=== PATIENT | female | born 1985 | race African-American/Black ===

== ENCOUNTER 2020-11-27 20:06 | Emergency (ER) | payer BC, SELFPAY ==
[2020-11-27 20:51] VITALS: BP 131/86; PULSE 78; RESP 16; TEMP 36.6; O2SAT 99; BMI 34.3
--- NOTE | 2020-11-27 21:41 | ECG_ITS ---
Test Reason : CHEST PAIN Blood Pressure : / mmHG Vent. Rate : 064 BPM Atrial Rate : 064 BPM P-R Int : 160 ms QRS Dur : 082 ms QT Int : 418 ms P-R-T Axes : 029 056 040 degrees QTc Int : 431 ms Sinus rhythm with Premature atrial complexes Otherwise normal ECG No previous ECGs available Referred By: Jese Lewis Electronically Signed By:AGNIESZKA HCURCHILL MD
[2020-11-27 22:07] LABS: MANUAL DIFF FLAG NO
[2020-11-27 22:09] LABS: Basophils Percent Auto 0.6 % (0-2); Eosinophils Absolute Auto 0.1 X10*3/uL (0.0-0.4); Eosinophils Percent Auto 2.3 % (0-4); Hematocrit 36.5 % (37-47); Imm Gran Abs Auto 0.01 X10*3/uL (0.00-0.03); Imm Gran Pct Auto 0.2 % (0.0-0.4); Lymphocytes Percent Auto 42.1 % (20-40); Mean Corpuscular HGB Conc 32.9 g/dl (31.0-35.0); Mean Corpuscular Hemoglobin 29.6 pg (27.0-33.0); Mean Corpuscular Volume 90.1 fL (80-98); Mean Platelet Volume 9.3 fL (9.4-12.3); Monocytes Absolute Auto 0.3 X10*3/uL (0.1-1.2); Monocytes Percent Auto 7.2 % (2-11); Neutrophils Absolute Auto 2.3 X10*3/uL (2.0-8.3); Neutrophils Percent Auto 47.6 % (45-73); Platelet Count 223 X10*3/uL (160-400); Red Blood Count 4.05 X10*6/uL (4.20-5.50); Red Cell Distribution Width 13.2 % (11.0-16.0); White Blood Count 4.8 X10*3/uL (4.8-10.8)
[2020-11-27 22:20] LABS: D Dimer < 200 NG/ML
[2020-11-27 22:39] LABS: Anion Gap 15 (12-20); Blood Urea Nitrogen 7 mg/dL (9-16); Calcium 9.5 mg/dL (8.4-10.2); Carbon Dioxide 24 mmol/L (22-29); Chloride 105 mmol/L (96-108); Creatinine Clr Calc Pharmacy 129.2; Estimated Glomerular Filt Rate > 60; Glucose Random 90 mg/dL (60-115); Potassium 3.7 mmol/L (3.3-5.1); Sodium 140 mmol/L (135-145)
--- NOTE | 2020-11-27 22:42 | ED_ITS ---
HPI - Chest Pain General Chief Complaint: Extremity Injury, Upper Stated Complaint: pain in left shoulder for a few hours Time Seen by Provider: 11/27/20 21:35 Source: patient Mode of arrival: ambulatory Limitations: no limitations History of Present Illness HPI narrative: patient with no known coronary artery disease noticed left-sided upper chest pain and left arm pain since 16:00. No shortness of breath no cough patient feel pain deep inside at this time left shoulder pain is gone on the just having dull pain in the left chest no relation with breathing no relation with movements no diaphoresis no nausea no vomiting patient never had similar pain in the past. Patient denies any cough no fever or chills no recent trauma Related Data Allergies Allergy/AdvReac Type Severity Reaction Status Date / Time No Known Allergies Allergy Verified 11/27/20 20:51 Review of Systems Review of Systems: Yes all other systems are reviewed and are negative [facility] Past Medical History Medical History No known health problems Social History Social History Advance Directives: No Advance Directives Information Provided: No Physical Exam Vital Signs: Vital Signs: Last Vital Signs Temp 97.8 F 11/27/20 20:51 Pulse 78 11/27/20 20:51 Resp 16 11/27/20 20:51 BP 131/86 11/27/20 20:51 Pulse Ox 99 11/27/20 20:51 Body Mass Index 34.3 Appearance: Alert. Oriented X3. No acute distress. Eyes: PERRLA, No Nystagmus ENT: Pharynx normal. Oral Mucosa moist Neck: Normal inspection. Neck supple. CVS: Normal heart rate and rhythm. Pulses normal. Respiratory: No respiratory distress. Equal air entry bilateral, no wheezing/rales/rhonchi Abdomen: Soft and nontender. Bowel sounds are present, no mass palpable, no CVA tenderness Skin: Skin warm and dry. Normal skin color. Normal skin turgor. Extremities: No lower extremity edema. No calf tenderness good range of movement of left shoulder , rotator cuff intact and nontender Neuro: Oriented X 3. No motor deficit. No sensory deficit. MDM - Chest Pain Lab Data Attestation: I reviewed the patient's lab results. Result diagrams: 11/27/20 22:03 11/27/20 22:03 Labs: Lab Results 11/27/20 11/27/20 11/27/20 Range/Units 22:03 22:03 22:03 WBC 4.8 (4.8-10.8) X10*3/uL RBC 4.05 L (4.20-5.50) X10*6/uL Hgb 12.0 (12.0-16.0) g/dl Hct 36.5 L (37-47) % MCV 90.1 (80-98) fL MCH 29.6 (27.0-33.0) pg MCHC 32.9 (31.0-35.0) g/dl RDW 13.2 (11.0-16.0) % Plt Count 223 (160-400) X10*3/uL MPV 9.3 L (9.4-12.3) fL Immature Gran % (Auto) 0.2 (0.0-0.4) % Neut % (Auto) 47.6 (45-73) % Lymph % (Auto) 42.1 H (20-40) % [place] % (Auto) 7.2 (2-11) % Eos % (Auto) 2.3 (0-4) % Baso % (Auto) 0.6 (0-2) % Lymph # (Auto) 2.0 (1.2-4.9) X10*3/uL [place] # (Auto) 0.3 (0.1-1.2) X10*3/uL Eos # (Auto) 0.1 (0.0-0.4) X10*3/uL Baso # (Auto) 0.0 (0.0-0.2) X10*3/uL Abs Immat Gran (auto) 0.01 (0.00-0.03) X10*3/uL Absolute Neuts (auto) 2.3 (2.0-8.3) X10*3/uL Absolute Nucleated RBC 0.000 (0.0-0.012) X10*3/uL Nucleated RBC % (auto) 0.0 (0.0-0.2) /100WBC D-Dimer < 200 NG/ML Sodium 140 (135-145) mmol/L Potassium 3.7 (3.3-5.1) mmol/L Chloride 105 (96-108) mmol/L Carbon Dioxide 24 (22-29) mmol/L Anion Gap 15 (12-20) BUN 7 L (9-16) mg/dL Creatinine 0.65 (0.5-1.4) mg/dL Estim Creat Clear Calc 129.2 Estimated GFR > 60 Random Glucose 90 (60-115) mg/dL Calcium 9.5 (8.4-10.2) mg/dL Troponin I High Sens (<3.5-17.0) ng/L 11/27/20 Range/Units 22:03 WBC (4.8-10.8) X10*3/uL RBC (4.20-5.50) X10*6/uL Hgb (12.0-16.0) g/dl Hct (37-47) % MCV (80-98) fL MCH (27.0-33.0) pg MCHC (31.0-35.0) g/dl RDW (11.0-16.0) % Plt Count (160-400) X10*3/uL MPV (9.4-12.3) fL Immature Gran % (Auto) (0.0-0.4) % Neut % (Auto) (45-73) % Lymph % (Auto) (20-40) % [place] % (Auto) (2-11) % Eos % (Auto) (0-4) % Baso % (Auto) (0-2) % Lymph # (Auto) (1.2-4.9) X10*3/uL [place] # (Auto) (0.1-1.2) X10*3/uL Eos # (Auto) (0.0-0.4) X10*3/uL Baso # (Auto) (0.0-0.2) X10*3/uL Abs Immat Gran (auto) (0.00-0.03) X10*3/uL Absolute Neuts (auto) (2.0-8.3) X10*3/uL Absolute Nucleated RBC (0.0-0.012) X10*3/uL Nucleated RBC % (auto) (0.0-0.2) /100WBC D-Dimer NG/ML Sodium (135-145) mmol/L Potassium (3.3-5.1) mmol/L Chloride (96-108) mmol/L Carbon Dioxide (22-29) mmol/L Anion Gap (12-20) BUN (9-16) mg/dL Creatinine (0.5-1.4) mg/dL Estim Creat Clear Calc Estimated GFR Random Glucose (60-115) mg/dL Calcium (8.4-10.2) mg/dL Troponin I High Sens < 3.5 (<3.5-17.0) ng/L ECG Data ECG #1: Attestation: I personally reviewed and interpreted this ECG as follows: Interpretation: nodes rhythm with PACs normal interval axis no acute ischemic changes impression normal EKG Scores Heart Score History: -0- slightly suspicious ECG: -0- normal Age: -0- < or = 45 Risk factory: -0- no risk factors known Troponin: -0- < or = normal limit Score: 0 Risk: 1.7% Discharge Plan Discharge Clinical Impression: Chest pain Qualifiers: Chest pain type: unspecified Qualified Code(s): R07.9 - Chest pain, unspecified Patient Disposition: Home, Self-Care Instructions: Chest Pain (ED) Additional Instructions: follow up with PCP for further evaluation at this time your chest pain is does not seems to be coming from the heart likely musculoskeletal Interventions: ED Discharge Assessment Last Done: 11/27/20 22:52 Discharge Date/Time: 11/27/20 22:53
[2020-11-27 22:47] LABS: Troponin-I High Sensitivity < 3.5 ng/L (<3.5-17.0)
== END 2020-11-27 22:53 | disposition home or self-care (01) ==
PROVIDERS: Emergency Provider Internal Medicine
DX: R07.9 Chest pain, unspecified (principal)
CPT/HCPCS: 36415; 80048; 84484; 85025; 85379; 93005; 99283

== ENCOUNTER 2025-02-24 10:58 | Outpatient (REF) | payer BC, SELFPAY ==
[2025-02-24 13:47] LABS: Hematocrit 37.1 % (37.0-47.0); Hemoglobin 12.2 g/dl (12.0-16.0); Mean Corpuscular HGB Conc 32.9 g/dl (31.0-35.0); Mean Corpuscular Hemoglobin 29.5 pg (27.0-33.0); Mean Corpuscular Volume 89.8 fL (80.0-98.0); NRBC Abs Auto 0.000 X10*3/uL (0.0-0.012); NRBC Pct Auto 0.0 /100WBC (0.0-0.2); Platelet Count 234 X10*3/uL (160-400); Red Blood Count 4.13 X10*6/uL (4.20-5.50); White Blood Count 3.2 X10*3/uL (4.8-10.8)
[2025-02-24 14:48] LABS: Alanine Aminotransferase 22 U/L (0-31); Albumin Level 4.5 g/dL (3.5-5.0); Alkaline Phosphatase 41 U/L (39-117); Anion Gap 12 (12-20); Aspartate Amino Transferase 20 U/L (5-31); Blood Urea Nitrogen 10 mg/dL (9-16); Calcium 9.0 mg/dL (8.4-10.2); Carbon Dioxide 27 mmol/L (22-29); Chloride 109 mmol/L (96-108); Cholesterol 205 mg/dL (<200); Estimated Glomerular Filt Rate > 60; HDL Cholesterol 54 mg/dL (>40); Potassium 3.9 mmol/L (3.3-5.1); Sodium 144 mmol/L (135-145); Total Protein 7.5 g/dL (6.5-8.0); Triglycerides 40 mg/dL (<150)
[2025-02-24 14:49] LABS: Thyroid Stimulating Hormone 2.02 uIU/mL (0.32-4.0)
[2025-02-24 16:17] LABS: Appearance Urine Clear; Glucose Urine UA Negative (Negative); PH 7.5 (5.0-9.0); Specific Gravity - Urine <= 1.005 (1.005-1.025)
== END 2025-02-24 10:59 | disposition home or self-care (01) ==
LOC: HO.HMGCLDS 10:58
PROVIDERS: PCP Internal Medicine; Visit Provider Internal Medicine
DX: Z23 Encounter for immunization (principal); Z28.82 Immunization not carried out because of caregiver refusal; R21 Rash and other nonspecific skin eruption; L30.9 Dermatitis, unspecified
CPT/HCPCS: 36415; 80048; 80061; 80076; 81003; 84443; 85027; 85652; 90471; 96127

== ENCOUNTER 2025-02-24 10:58 | Outpatient (AMB) | payer BC, SELFPAY ==
--- NOTE | 2025-02-24 11:07 | A.OFFPC_ITS ---
Vital Signs 02/24/25 11:32 Height 5 ft 4.57 in Weight 189 lb BMI 31.9 BP 107/56 L Blood Pressure Location Rt brachial Position Sitting Respiration 14 Pulse 60 Pulse Source Pulse Oximeter Temp 97.8 F Temp Source Temporal Artery Scan Pulse Oximetry (%) 99 Oxygen Delivery Method Room Air Intake Visit Reasons: Establish Care Cocoa Bean Cleaner Required: No Accompanied by: Self / Same As Patient Allergies No Known Allergies Allergy (Verified 02/24/25 13:36) Tobacco use date assessed: 02/24/25 Dental Screening Dental Screen Date: 02/24/25 Did you have a dental visit in the last 12 months?: Yes Did you have a dental problem in the last 6 months where you did not have access to dental care?: No Was dental information given to patient?: Patient has dentist HPI Establish Care HPI Details 39-year-old female presents to the [facility] to establish her care. Patient has no active chronic medical conditions. In the past few months, she has been troubled by constant itching in the ear canals bilaterally. She has noticed flaking on her pillow case. Has been treated with antibiotics and antifungal in the past. Reports no symptoms of blocked ears or loss of hearing. [facility] Medical History No known health problems Family History Mother Cancer Father BP (high blood pressure) Social History Housing: House Alcohol intake: current Alcohol intake frequency: does not drink Patient Tobacco Use Status: Former Tobacco user service: No Current occupational status: employed Cognitive needs: No Hearing needs: No Vision needs: No Questionnaire PHQ-9 Over the last 2 weeks, how often have you been bothered by any of the following problems? 1. Little interest or pleasure in doing things: not at all 2. Feeling down, depressed, or hopeless: not at all 3. Trouble falling or staying asleep, or sleeping too much: not at all 4. Feeling tired or having little energy: not at all 5. Poor appetite or overeating: not at all 6. Feeling bad about yourself - or that you are a failure or have let yourself or your family down: not at all 7. Trouble concentrating on things, such as reading the newspaper or watching television: not at all 8. Moving or speaking so slowly that other people could have noticed. Or the opposite - being so fidgety or restless that you have been moving around a lot more than usual: not at all 9. Thoughts that you would be better off or of hurting yourself in some way: not at all Total score: 0 Source: Developed by Drs. Paulino Murray, Meri Miramontes, Malcom Tripp and colleagues, with an educational niesha from [employer]. Thrive Questionnaire Date Thrive assessed: 02/24/25 I am a: Patient What is your living situation today?: I have a steady place to live Within the past 12 months, did the food you bought not last and you didn't have the money to get more?: Never true Within the past 12 months, did you worry whether your food would run out before you got money to buy more?: Never true Do you have trouble paying for medicines?: No Do you have trouble getting transportation to medical appointments?: No Do you have trouble paying your heating and electricity bill?: No Do you have trouble taking care of your child, family member or friend?: No Do you have trouble with day-to-day activities such as bathing, preparing meals, shopping, managing finances, etc.?: No Are you currently unemployed and looking for a job?: No Are you interested in more education?: No Please select the resources that you would like help with: None THRIVE Score: 0 AUDIT C Alcohol Use Questionnaire (AUDIT-C) 1. How often do you have a drink containing alcohol?: Never 3. How often do you have six or more drinks on one occasion?: Never Total Score: 0 HAILY-7 AMB Questionnaire HAILY-7 Date HALIY - 7 assessed: 02/24/25 Feeling nervous, anxious, or on edge: 0 = Not at all Not being able to stop or control worryin = Not at all Worrying too much about different things: 0 = Not at all Trouble relaxin = Not at all Being so restless that it is hard to sit still: 0 = Not at all Becoming easily annoyed or irritable: 0 = Not at all Feeling afraid as if something awful might happen: 0 = Not at all Total HAILY-7 score (0-4 normal; 5-9 mild; 10-14 moderate; 15-21 severe): 0 Source: Developed by Drs. Paulino Murray, Meri Miramontes, Malcom Tripp and colleagues, with an educational niesha from [employer]. Physical exam (Primary Care) Vital Signs: Last Vital Signs Temp 97.8 F 02/24/25 11:32 Pulse 60 02/24/25 11:32 Resp 14 02/24/25 11:32 BP 107/56 L 02/24/25 11:32 Pulse Ox 99 02/24/25 11:32 Oxygen Delivery Method Room Air 02/24/25 11:32 BMI result Body Mass Index 31.9 Tobacco/Smoking Status: Tobacco use Status Tobacco use date assessed 02/24/25 02/24/25 11:09 Patient Tobacco Use Status Former Tobacco user 02/24/25 11:37 PHQ-9: PHQ-9 Score PHQ-9: Total score 0 02/24/25 11:37 Thrive Assessment: Date of Thrive Assessment Date Thrive assessed 02/24/25 02/24/25 11:09 Const General: cooperative and healthy appearing Nutritional Appearance: well nourished Orientation/consciousness: patient oriented x3 Limitations: no limitations HENMT Other: Bilateral ear: External ear canal: Right and left : Flaking skin with minimal erythema. Head: Yes normal to inspection Eyes General: appearance normal, both eyes and all related structures Neck Neck: Yes normal visual inspection Chest Chest palpation & inspection: normal palpation of entire chest wall Resp Effort & Inspection: normal respiratory effort Neuro General: patient oriented x3 Office Procedures Flu Questionnaire Does the patient have a severe egg allergy?: No Does the patient have severe life threatening allergies?: No Does the patient have a fever or illness today?: No Has the patient ever had Guillain-Silver Plume Syndrome?: No Has the patient ever had any past reaction to a flu shot?: No Immunizations Fluarix [id number] (PF) 45 mcg (15 mcg x 3)/0.5 mL IM syringe Performing Provider: Jameel Longoria MD [facility] [place] [facility] Documented (not given) by: GAGAN Urena on 02/24/25 11:38 Reason Not Given: Patient Refused Coding Level of Care Code New Pt Level 4 (33551) Complex EM visit Add On G2211 Diagnoses Eczema L30.9 Assessment & Plan Assessment & Plan (1) Eczema: Code(s): L30.9 - Dermatitis, unspecified Plan: Trial of hydrocortisone cream for 2 weeks. If no response, a dermatology appointment will be requested. Blood work has been ordered. Orders: Orders Complete Blood Count no Diff Today R21 - Rash and other nonspecific skin eruption Liver Panel Today R21 - Rash and other nonspecific skin eruption Influenza [id number] Immunization Today Z23 - Encounter for immunization Basic Metabolic Panel Today R21 - Rash and other nonspecific skin eruption Lipid Panel Today R21 - Rash and other nonspecific skin eruption Thyroid Stimulating Hormone Today R21 - Rash and other nonspecific skin erup tion UA and rflx microscopic Today R21 - Rash and other nonspecific skin eruption Erythrocyte Sedimentation Rate Today R21 - Rash and other nonspecific skin eruption Medications: New hydrocortisone 2.5% 1 appl topical BID PRN 20 grams 0RF skin irritation
[2025-02-24 11:32] VITALS: BP 107/56; PULSE 60; RESP 14; TEMP 36.6; O2SAT 99; BMI 31.9
--- OUTSIDE RECORDS SUMMARY | 2025-02-24 12:28 | XMS_ITS ---
Author Name [facility] Organization Unknown Problems Problem Status Onset Date Problem Type Date of Resoluti on Source Otalgia, bilateral active EncounterDiagnosisAct [facility]
--- OUTSIDE RECORDS SUMMARY | 2025-02-24 12:28 | XMS_ITS | Clinical Summary ---
Author Organization [facility] Address [address] [place] [address] Care Team Providers Care Encoding Clerk Name Role Phone Unavailable Primary Care Provider Unavailabl e Encounters Date Type Department Care Team Description 12/10/2024 Transcribe Orders [facility] PRIMARY CARE SCAN Nanette Crooks NP Otalgia, bilateral (Primary Dx) from Last 3 Months Social History Tobacco Use Types Packs/Day Years Used Date Smoking Tobacco: Never Assessed Comments Unknown Sex and Gender Information Value Date Recorded Sex Assigned at Not on file Legal Sex Female 10:50 AM EDT Gender Identity Not on file Sexual Orientation Not on file Plan of Treatment Health Maintenance Due Date Last Done Comments Hepatitis C Virus Screening 1983 HIV Screening 08/06/1996 DTaP/Tdap/Td Vaccines (1 - Tdap) 08/06/2002 Hepatitis B Vaccines (1 of 3 - 19+ 3-dose series) 08/06/2002 COVID-19 Vaccine (2023-2 5 season) 2025 HPV Vaccines (No Doses Required) Completed Pneumococcal Vaccine: Pediat sabra (0-5 Years) and At-Risk Patients (6 to 49 Years) Aged Out No longer eligible b ased on patient's age to complete this topic
== END 2025-02-24 12:09 | disposition home or self-care (01) ==
LOC: HO.HMCSH 10:58
PROVIDERS: Visit Provider Internal Medicine
DX: L30.9 Dermatitis, unspecified (principal); Z23 Encounter for immunization

== ENCOUNTER 2025-04-01 15:46 | Outpatient (AMB) | payer BC, SELFPAY ==
--- NOTE | 2025-04-01 15:47 | A.OFFPC_ITS ---
Vital Signs 04/01/25 15:50 Height 5 ft 4.5 in Weight 194 lb BMI 32.8 BP 106/60 Blood Pressure Location Rt brachial Pulse 84 Pulse Source Pulse Oximeter Temp 97.3 F Pulse Oximetry (%) 99 Intake Visit Reasons: Follow up on labs Intake Note: no other issues Allergies No Known Allergies Allergy (Verified 04/01/25 15:48) Tobacco use date assessed: 02/24/25 Dental Screening Dental Screen Date: 02/24/25 [facility] Medical History No known health problems Family History Mother Cancer Father BP (high blood pressure) Social History Housing: House Alcohol intake: current Alcohol intake frequency: does not drink Patient Tobacco Use Status: Former Tobacco user service: No Current occupational status: employed Cognitive needs: No Hearing needs: No Vision needs: No Questionnaire PHQ-9 Over the last 2 weeks, how often have you been bothered by any of the following problems? 1. Little interest or pleasure in doing things: not at all 2. Feeling down, depressed, or hopeless: not at all 3. Trouble falling or staying asleep, or sleeping too much: not at all 4. Feeling tired or having little energy: not at all 5. Poor appetite or overeating: not at all 6. Feeling bad about yourself - or that you are a failure or have let yourself or your family down: not at all 7. Trouble concentrating on things, such as reading the newspaper or watching television: not at all 8. Moving or speaking so slowly that other people could have noticed. Or the opposite - being so fidgety or restless that you have been moving around a lot more than usual: not at all 9. Thoughts that you would be better off or of hurting yourself in some way: not at all Total score: 0 Source: Developed by Drs. Paulino Murray, Meri Miramontes, Malcom Tripp and colleagues, with an educational niesha from [employer] Thrive Questionnaire Date Thrive assessed: 02/24/25 I am a: Patient What is your living situation today?: I have a steady place to live Within the past 12 months, did the food you bought not last and you didn't have the money to get more?: Never true Within the past 12 months, did you worry whether your food would run out before you got money to buy more?: Never true Do you have trouble paying for medicines?: No Do you have trouble getting transportation to medical appointments?: No Do you have trouble paying your heating and electricity bill?: No Do you have trouble taking care of your child, family member or friend?: No Do you have trouble with day-to-day activities such as bathing, preparing meals, shopping, managing finances, etc.?: No Are you currently unemployed and looking for a job?: No Are you interested in more education?: No Please select the resources that you would like help with: None THRIVE Score: 0 AUDIT C Alcohol Use Questionnaire (AUDIT-C) 1. How often do you have a drink containing alcohol?: Never 3. How often do you have six or more drinks on one occasion?: Never Total Score: 0 HAILY-7 AMB Questionnaire HAILY-7 Date HAILY - 7 assessed: 02/24/25 Feeling nervous, anxious, or on edge: 0 = Not at all Not being able to stop or control worryin = Not at all Worrying too much about different things: 0 = Not at all Trouble relaxin = Not at all Being so restless that it is hard to sit still: 0 = Not at all Becoming easily annoyed or irritable: 0 = Not at all Feeling afraid as if something awful might happen: 0 = Not at all Total HAILY-7 score (0-4 normal; 5-9 mild; 10-14 moderate; 15-21 severe): 0 Source: Developed by Drs. Paulino Murray, Meri Miramontes, Malcom Tripp and colleagues, with an educational niesha from [employer] Physical exam (Primary Care) Vital Signs: Last Vital Signs Temp 97.3 F 04/01/25 15:50 Pulse 84 04/01/25 15:50 BP 106/60 04/01/25 15:50 Pulse Ox 99 04/01/25 15:50 BMI result Body Mass Index 32.8 Tobacco/Smoking Status: Tobacco use Status Tobacco use date assessed 02/24/25 04/01/25 15:52 Patient Tobacco Use Status Former Tobacco user 04/01/25 15:52 PHQ-9: PHQ-9 Score PHQ-9: Total score 0 04/01/25 15:52 Thrive Assessment: Date of Thrive Assessment Date Thrive assessed 02/24/25 04/01/25 15:52 Coding Level of Care Code Est Pt Level 4 (52806) Complex EM visit Add On G2211 Diagnoses Hyperlipidemia E78.5 Assessment & Plan Assessment & Plan (1) Hyperlipidemia: Code(s): E78.5 - Hyperlipidemia, unspecified Plan History of Present Illness - The patient is a 39-year-old female presenting for a review of lab results. - She expressed concern regarding her body's water regulation, noting her blood sodium was high-normal at 144 and chloride was 109, while her urine was dilute. - The patient also has concerns about her blood counts, reporting a white blood cell count of 3.2 which has been low for over two years, and a red blood cell count of 4.13, which she feels has dropped within the last year. - She has a history of anemia but is not currently anemic. - Her hemoglobin was 12 and RBC count was 4.25 in November 2020. - Regarding her metabolic markers, the patient noted her LDL cholesterol is high at 143 and total cholesterol is 205, despite a healthy diet. - Her triglycerides are low and HDL is excellent at 55.4. - She has no history of diabetes. - Finally, the patient reports chronic symptoms of ear itching and scaly skin, which recurred shortly after a two-week course of hydrocortisone cream. - She reports her symptoms were controlled while using the medication. Social History - Tobacco: Denies smoking. - Diet: Reports a healthy diet. Review of Systems - Dermatologic: Reports recurrent ear itching with scaly skin. - Ears: Reports being very sensitive. Physical Exam General: Cooperative and healthy appearing Nutritional Appearance: Well nourished Orientation/consciousness: Patient oriented x3 Limitations: No limitations Head: Normal to inspection General: Appearance normal, both eyes and all related structures Neck: Normal visual inspection Chest: Normal palpation of entire chest wall Respiratory: Normal respiratory effort Neurology: Patient oriented x3 Results - Complete Blood Count: White blood cells 3.2 (low), Red blood cells 4.13, Hemoglobin 12 (stable since 11/2020). - Comprehensive Metabolic Panel: Sodium 144, Chloride 109. BUN and creatinine are normal. - Lipid Panel: Total cholesterol 205, LDL 143, HDL 55.4, triglycerides low. Plan - Electrolyte abnormalities: The patient was reassured that her kidney function is normal and her body's water regulation system is functioning properly. - Leukopenia: The patient was informed she has leukopenia but was reassured that the level is not dangerously low and can be influenced by genetics. - We will continue to monitor her blood counts. - Offered a referral to a drain cleaner if she remains concerned and instructed her to request it via the patient portal if desired. - Hyperlipidemia: Discussed the patient's elevated LDL cholesterol as a risk factor for heart disease. - Also reviewed mitigating factors including being female, having normal blood pressure, not having diabetes, and being a non-smoker. - Offered cholesterol-lowering medication (statin) and discussed potential side effects, including the need for liver monitoring and the risk of muscle spasms. - The patient declined to start medication at this time, and we agreed to monitor her cholesterol levels. - Ear pruritus: The patient was advised she can continue to use hydrocortisone cream as needed when the itching occurs. - She was reassured that there are no side effects with continued use. Discussion Notes I reviewed the patient's recent laboratory results and addressed her multiple concerns. I explained that her kidney function tests are normal and that there are no concerns about her body's water and salt regulation. In regards to her chronic low white blood cell count, I informed her that while she has leukopenia, the count is not dangerously low and we will continue to monitor it. I offered a referral to a drain cleaner should her concerns persist. We discussed her elevated LDL cholesterol. While her number is high, I noted her overall risk for heart disease is currently low due to protective factors such as her sex, normal blood pressure, and absence of diabetes or smoking history. I presented the option of starting a statin medication, explaining the risks, including the need for liver function checks and potential for muscle aches, and benefits, such as reducing heart disease risk. The patient elected to defer medication and continue with monitoring for now. For her recurrent ear itching, I advised her to continue using the hydrocortisone cream as needed. I reassured her that there is no evidence of a chronic illness based on her current clinical picture and lab results and that she was satisfied with the answers provided. Patient Instructions - Your recent lab results have been reviewed and do not show any signs of a serious chronic illness. - Your kidney function is normal, and there is no need to worry about your body's ability to manage water and salt. - We will continue to keep an eye on your low white blood cell count. - If you are still worried, you can ask for a referral to a blood specialist (drain cleaner) through the online patient portal. - Your bad cholesterol (LDL) is a little high. - For now, we will just monitor this with future blood tests, as you decided not to start medication at this time. - For the itching and scaly skin in your ears, you can keep using the hydrocortisone cream whenever it starts to itch. - Please get your flu shot if you have not already.
[2025-04-01 15:50] VITALS: BP 106/60; PULSE 84; TEMP 36.3; O2SAT 99; BMI 32.8
== END 2025-04-01 16:13 | disposition home or self-care (01) ==
LOC: HO.HMCSH 15:46
PROVIDERS: PCP Internal Medicine; Visit Provider Internal Medicine
DX: E78.5 Hyperlipidemia, unspecified (principal)